=== PATIENT | male | born 1995 ===

== ENCOUNTER 2018-02-26 15:00 | Emergency (ER) | payer SELFPAY ==
--- NOTE | 2018-02-26 17:02 | ED ---
Laceration/Wound HPI - HPI Summary HPI Summary: Patient reports a left index finger injury with a knife cutting vegetables this afternoon. The laceration appears to be approximately 1.5 cm in length, irregular over the left index finger just distal to the palmar side of the MCP. Denies any numbness or tingling. Denies any difficulty with flexion or extension of the finger. He has never injured this finger before. Tetanus is up-to-date. - History of Current Complaint Stated Complaint: LT FINGER LACERATION Time Seen by Provider: 02/26/18 15:29 Hx Obtained From: Patient Mechanism of Injury: Sharp/Blunt Trauma Onset/Duration: Sudden Onset Aggravating: Movement Alleviating: Compression Timing: Constant Onset Severity: Mild Current Severity: Mild Pain Intensity: 4 Pain Scale Used: 0-10 Numeric Associated Signs & Symptoms: Negative - Allergy/Home Medications Allergies/Adverse Reactions: Allergies Allergy/AdvReac Type Severity Reaction Status Date / Time No Known Allergies Allergy Verified 02/26/18 15:14 Home Medications: Home Medications NK [No Home Medications Reported] 02/26/18 [History Confirmed 02/26/18] PMH/Surg Hx/FS Hx/Imm Hx Previously Healthy: Yes - Immunization History Hx Pertussis Vaccination: No Immunizations Up to Date: Yes Infectious Disease History: No Infectious Disease History: Denies: Traveled Outside the [place] in Last 30 Days - Social History Occupation: Employed Part-time, Student Lives: Dormitory/Roommates Alcohol Use: None Hx Substance Use: No Substance Use Type: Reports: None Hx Tobacco Use: No Smoking Status (MU): Unknown if Ever Smoked Review of Systems Constitutional: Negative Negative: Fever, Chills, Fatigue, Skin Diaphoresis Negative: Palpitations, Chest Pain Negative: Shortness Of Breath, Cough Negative: Abdominal Pain, Vomiting, Diarrhea, Nausea Genitourinary: Negative Positive: no symptoms reported, see HPI Negative: Arthralgia, Myalgia Positive: Other - 1.5 cm laceration irregular, superficial Neurological: Negative All Other Systems Reviewed And Are Negative: Yes Physical Exam Triage Information Reviewed: Yes Vital Signs On Initial Exam: Initial Vitals Temp Pulse Resp BP Pulse Ox 98.2 F 76 16 139/77 100 02/26/18 15:11 02/26/18 15:11 02/26/18 15:11 02/26/18 15:11 02/26/18 15:11 Vital Signs Reviewed: Yes Appearance: Positive: Well-Appearing, Well-Nourished Skin: Positive: Warm, Skin Color Reflects Adequate Perfusion, Other - 1.5 cm irregular laceration to the left index finger Head/Face: Positive: Normal Head/Face Inspection Eyes: Positive: EOMI, TEJAS, Conjunctiva Clear Neck: Positive: Supple, No Lymphadenopathy Respiratory/Lung Sounds: Positive: Clear to Auscultation, Breath Sounds Present Cardiovascular: Positive: Pulses are Symmetrical in both Upper and Lower Extremities Bowel Sounds: Positive: Present Neurological: Positive: Normal, Sensory/Motor Intact, Speech Normal Psychiatric: Positive: Normal AVPU Assessment: Alert Procedures - Laceration/Wound Repair 1 Location: upper extremity Description: Linear Anesthesia: Local Betadine Prep?: No Laceration/Wound Explored: clean Suture Type: Prolene Number of Sutures: 6 Layer Closure?: No Sterile Dressing Applied?: Yes Diagnostics - Vital Signs Vital Signs Temp Pulse Resp BP Pulse Ox 02/26/18 15:11 98.2 F 76 16 139/77 100 - Laboratory Lab Statement: Any lab studies that have been ordered have been reviewed, and results considered in the medical decision making process. Laceration Repair Course/Dx - Course Course Of Treatment: Time obtained. 6, 4-0 sutures placed using simple interrupted. Anesthetized well with 1.5ml lidocaine without epi. Patient tolerated well. Vaseline occlusive dressing applied and tube gauze wrapped. Suture removal in 7 days. - Differential Dx Differental Diagnoses: Laceration - Clinical Impression Provider Diagnoses: Laceration Discharge - Sign-Out/Discharge Documenting (check all that apply): Patient Departure - Discharge Plan Condition: Stable Disposition: HOME Patient Education Materials: Laceration (ED) Referrals: No Primary Care Phys,NOPCP [Primary Care Provider] - Additional Instructions: Suture removal in 7 days You may go to [facility] or return to the ED Please keep bandage applied until tomorrow You may then get the area wet with soap and water and leave open to air - Billing Disposition and Condition Condition: STABLE Disposition: Home
[2018-02-26 17:49] VITALS: BP 121/81
== END 2018-02-26 17:48 | disposition home or self-care (01) ==
LOC: ED 15:00
DX: S61.211A Laceration without foreign body of left index finger without damage to nail, initial encounter (principal); W26.0XXA Contact with knife, initial encounter; Y93.G1 Activity, food preparation and clean up; Y92.9 Unspecified place or not applicable
CPT/HCPCS: 12001; 99282